=== PATIENT | female | born 1950 | race Hispanic/Latino ===

== ENCOUNTER 2018-01-04 14:16 | Emergency (ER) | payer OTHER, MEDICARE ==
[~2018-01-04 14:16] MED LIST: ALEN35 PO; CALC600T12 PO; LISI10TA7 PO
[2018-01-04 14:40] LABS: APPEARANCE,URINE Clear (CLEAR); BILIRUBIN,URINE Negative (NEGATIVE); COLOR,URINE Yellow (YELLOW); GLUCOSE, URINE (UA) Negative (NEGATIVE); KETONES,URINE Negative (NEGATIVE); LEUKOCYTE ESTERASE ,URINE Small (NEGATIVE); NITRATE,URINE Negative (NEGATIVE); OCCULT BLOOD,URINE Negative (NEGATIVE); PROTEIN,URINE Negative (NEGATIVE); UROBILINOGEN,URINE 0.2 mg/dL (0.2-1.0)
[2018-01-04 15:05] LABS: BACTERIA,URINE None Seen /HPF (None Seen); RBC,URINE None Seen /HPF (0-1); TRANSITIONAL EPI CELLS,URINE Few /HPF (None Seen); WBC,URINE 0-1 /HPF (0-1)
[2018-01-04] MEDS ORDERED: METHYLPREDNISOLONE SOD SUCC 125MG/2ML VIAL ONE (16:04)
[2018-01-04] MEDS ORDERED: ONDANSETRON ODT 4 MG TAB ONE ×2 (16:05→17:36)
[2018-01-04] MEDS ORDERED: HYDROMORPHONE 1 MG/1 ML AMP ONE (16:05)
[2018-01-04 16:06] LABS: BASOPHILS % (AUTO) 1.1 % (0.0-5.0); EOSINOPHILS % (AUTO) 7.5 % (0.0-8.0); HEMATOCRIT 41.3 % (36-48); LYMPHOCYTES % (AUTO) 41.1 % (21.0-51.0); MEAN CORPUSCULAR HEMOGLOBIN 29.1 pg (27.0-33.0); MEAN CORPUSCULAR HGB CONC 32.7 g/dL (32.0-36.0); MEAN CORPUSCULAR VOLUME 89.1 fL (79-99); MONOCYTES % (AUTO) 9.3 % (3.0-13.0); PLATELET COUNT (AUTO) 188 K/uL (130-400); RED BLOOD CELL COUNT(AUTO) 4.64 MIL/uL (4.00-5.50); RED CELL DISTRIBUTION WIDTH 13.6 % (11.0-15.5); WHITE BLOOD COUNT (AUTO) 4.9 K/uL (4.8-10.8)
[2018-01-04 16:19] LABS: CREATININE 0.8 mg/dL (0.5-1.5); POTASSIUM 4.2 mmol/L (3.5-5.1)
[2018-01-04 16:24] LABS: ALBUMIN 3.7 g/dL (3.5-5.0); BILIRUBIN,TOTAL 0.3 mg/dL (0.2-1.0); TOTAL PROTEIN, SERUM 7.7 g/dL (6.0-8.3)
== END 2018-01-04 17:52 | disposition home or self-care (01) ==
LOC: EDH 14:16
DX: M06.9 Rheumatoid arthritis, unspecified (principal); E11.9 Type 2 diabetes mellitus without complications; Z79.4 Long term (current) use of insulin; Z88.8 Allergy status to other drugs, medicaments and biological substances
CPT/HCPCS: 36415; 80053; 81001; 85025; 96372 ×2; 99284; J1170; J2930

== ENCOUNTER 2018-06-01 11:13 | Emergency (ER) | payer OTHER, MEDICARE ==
[2018-06-01] MEDS ORDERED: MECLIZINE HCL 25 MG TABLET ONE (11:42)
[2018-06-01] MEDS ORDERED: KETOROLAC TROMETHAMINE 15MG/ML ONE (11:42)
[2018-06-01] MEDS ORDERED: ORPHENADRINE CITRATE 30 MG/ML ML ONE (11:42)
[2018-06-01 11:47] LABS: BASOPHILS % (AUTO) 1.4 % (0.0-5.0); EOSINOPHILS % (AUTO) 6.2 % (0.0-8.0); HEMATOCRIT 39.7 % (36-48); LYMPHOCYTES % (AUTO) 36.1 % (21.0-51.0); MEAN CORPUSCULAR HEMOGLOBIN 29.5 pg (27.0-33.0); MEAN CORPUSCULAR HGB CONC 33.2 g/dL (32.0-36.0); MEAN CORPUSCULAR VOLUME 89.1 fL (79-99); MONOCYTES % (AUTO) 7.7 % (3.0-13.0); NEUTROPHILS % (AUTO) 48.6 % (40.0-77.0); NUCLEATED RED BLOOD CELLS 0.1 % (0.0-0.19); PLATELET COUNT (AUTO) 233 K/uL (130-400); RED BLOOD CELL COUNT(AUTO) 4.46 MIL/uL (4.00-5.50); RED CELL DISTRIBUTION WIDTH 13.9 % (11.0-15.5); WHITE BLOOD COUNT (AUTO) 4.9 K/uL (4.8-10.8)
[2018-06-01 12:24] LABS: CREATININE 0.8 mg/dL (0.5-1.5); POTASSIUM 4.1 mmol/L (3.5-5.1)
[2018-06-01 12:30] LABS: ALBUMIN 3.9 g/dL (3.5-5.0); BILIRUBIN,TOTAL 0.3 mg/dL (0.2-1.0); TOTAL PROTEIN, SERUM 7.5 g/dL (6.0-8.3)
== END 2018-06-01 15:21 | disposition home or self-care (01) ==
LOC: EDH 11:13
DX: S16.1XXA Strain of muscle, fascia and tendon at neck level, initial encounter (principal); H81.10 Benign paroxysmal vertigo, unspecified ear; M35.00 Sjogren syndrome, unspecified; J84.10 Pulmonary fibrosis, unspecified; M19.90 Unspecified osteoarthritis, unspecified site; E11.9 Type 2 diabetes mellitus without complications; Z88.8 Allergy status to other drugs, medicaments and biological substances; Z90.710 Acquired absence of both cervix and uterus; X58.XXXA Exposure to other specified factors, initial encounter; Y93.89 Activity, other specified; Y92.89 Other specified places as the place of occurrence of the external cause; Y99.8 Other external cause status
CPT/HCPCS: 36415; 72040; 80053; 85025; 96374; 96375; 99284; J1885; J2360

== ENCOUNTER 2018-07-20 13:16 | Emergency (ER) | payer OTHER, MEDICARE ==
[2018-07-20 14:19] LABS: BASOPHILS % (AUTO) 1.2 % (0.0-5.0); HEMATOCRIT 38.9 % (36-48); LYMPHOCYTES % (AUTO) 27.6 % (21.0-51.0); MEAN CORPUSCULAR HEMOGLOBIN 29.3 pg (27.0-33.0); MEAN CORPUSCULAR VOLUME 88.8 fL (79-99); MONOCYTES % (AUTO) 9.7 % (3.0-13.0); NEUTROPHILS % (AUTO) 57.5 % (40.0-77.0); NUCLEATED RED BLOOD CELLS 0.1 % (0.0-0.19); PLATELET COUNT (AUTO) 198 K/uL (130-400); RED BLOOD CELL COUNT(AUTO) 4.38 MIL/uL (4.00-5.50); RED CELL DISTRIBUTION WIDTH 13.8 % (11.0-15.5); WHITE BLOOD COUNT (AUTO) 4.3 K/uL (4.8-10.8)
[2018-07-20 14:30] LABS: CREATININE 0.7 mg/dL (0.5-1.5); POTASSIUM 3.7 mmol/L (3.5-5.1)
[2018-07-20 14:34] LABS: BILIRUBIN,TOTAL 0.2 mg/dL (0.2-1.0); TOTAL PROTEIN, SERUM 7.3 g/dL (6.0-8.3)
[2018-07-20 14:44] LABS: B-TYPE NATRIURETIC PEPTIDE 67 pg/mL (0-100)
== END 2018-07-20 15:05 | disposition home or self-care (01) ==
LOC: EDH 13:16
DX: J18.9 Pneumonia, unspecified organism (principal); E11.9 Type 2 diabetes mellitus without complications; M19.90 Unspecified osteoarthritis, unspecified site; Z88.8 Allergy status to other drugs, medicaments and biological substances; Z90.710 Acquired absence of both cervix and uterus
CPT/HCPCS: 36415; 71045; 80053; 83880; 84484; 85025; 93005

== ENCOUNTER 2018-09-14 02:05 | Inpatient (IN) | payer OTHER, MEDICARE | END 2018-09-19 14:30 | disposition home or self-care (01) | LOC: EDH 02:05 → EDHIP 04:17 → 3CH 17:18 | DX: I21.4 Non-ST elevation (NSTEMI) myocardial infarction (principal); J10.00 Influenza due to other identified influenza virus with unspecified type of pneumonia; I10 Essential (primary) hypertension; J84.10 Pulmonary fibrosis, unspecified; R09.02 Hypoxemia; J40 Bronchitis, not specified as acute or chronic ==

== ENCOUNTER 2021-10-09 10:00 | Emergency (ER) | payer OTHER, MEDICARE ==
[~2021-10-09] VITALS: Ht 154.9 cm; Wt 65.8 kg
[~2021-10-09 10:00] MED LIST changes: -ALEN35 PO; -CALC600T12 PO; +HYDR200T4 PO; -LISI10TA7 PO; +LOSA50TA64 PO; +MYCO500T5 PO; +PANT40TA54 PO
[2021-10-09] MEDS ORDERED: ACETAMINOPHEN 500 MG TABLET PO ONE (13:00)
[2021-10-09] MEDS ORDERED: DICL20GE TP (13:04)
[2021-10-09 13:44] VITALS: BP 144/77
== END 2021-10-09 13:45 | disposition home or self-care (01) ==
LOC: EDH 10:00
DX: M79.662 Pain in left lower leg (principal); M19.90 Unspecified osteoarthritis, unspecified site; Z98.890 Other specified postprocedural states; Z79.899 Other long term (current) drug therapy; Z88.1 Allergy status to other antibiotic agents
CPT/HCPCS: 93971

== ENCOUNTER → 2021-10-20 | Outpatient (CLI) | payer OTHER, MEDICARE ==
[~2021-10-20] MED LIST changes: +DICL20GE TP
== END | disposition home or self-care (01) ==
LOC: RAH 11:30
PROVIDERS: ATTEND Internal Medicine
DX: M25.462 Effusion, left knee (principal); M79.605 Pain in left leg
CPT/HCPCS: 93971

== ENCOUNTER 2021-10-29 04:26 | Emergency (ER) | payer OTHER, MEDICARE ==
[~2021-10-29] VITALS: Ht 154.9 cm; Wt 65.8 kg
[2021-10-29 04:36] VITALS: BP 168/62
[2021-10-29] MEDS ORDERED: OXYC-38 PO (04:55)
[2021-10-29] MEDS ORDERED: NAPR-1180 PO (04:55)
[2021-10-29] MEDS ORDERED: PRED50TA2 PO (04:55)
[2021-10-29] MEDS ORDERED: ONDANSETRON ODT 4MG TAB SL ONE (05:00)
[2021-10-29] MEDS ORDERED: SOLU-MEDROL 125MG VIAL IM ONE (05:00)
[2021-10-29] MEDS ORDERED: MORPHINE 4 MG SYG IM ONE (05:00)
== END 2021-10-29 05:19 | disposition home or self-care (01) ==
LOC: EDH 04:26
DX: M54.32 Sciatica, left side (principal); I10 Essential (primary) hypertension; Z88.8 Allergy status to other drugs, medicaments and biological substances; Z79.899 Other long term (current) drug therapy; Z98.890 Other specified postprocedural states
CPT/HCPCS: 99284; 96372 ×2; J2930; J2270

== ENCOUNTER → 2021-12-05 | Outpatient (CLI) | payer OTHER, MEDICARE ==
[~2021-12-05] MED LIST changes: +IOHEXOL-350 50ML VIAL IV ONE; +NAPR-1180 PO; +OXYC-38 PO; +PRED50TA2 PO
== END | disposition home or self-care (01) ==
LOC: RAH 09:36
PROVIDERS: ATTEND Internal Medicine
DX: R29.898 Other symptoms and signs involving the musculoskeletal system (principal)
CPT/HCPCS: 70470; Q9967

== ENCOUNTER 2022-04-19 20:07 | Emergency (ER) | payer OTHER, MEDICARE ==
[~2022-04-19] VITALS: Ht 157.5 cm; Wt 63.0 kg
[~2022-04-19 20:07] MED LIST changes: -IOHEXOL-350 50ML VIAL IV ONE
[2022-04-19 21:31] LABS: BASOPHILS % (AUTO) 0.4 % (0.0-5.0); EOSINOPHILS % (AUTO) 1.4 % (0.0-8.0); LYMPHOCYTES % (AUTO) 27.2 % (21.0-51.0); MEAN CORPUSCULAR HEMOGLOBIN 29.9 pg (27.0-33.0); MEAN CORPUSCULAR HGB CONC 32.4 g/dL (32.0-36.0); MEAN CORPUSCULAR VOLUME 92.1 fL (79-99); MONOCYTES % (AUTO) 13.4 % (3.0-13.0); NEUTROPHILS % (AUTO) 57.2 % (40.0-77.0); PLATELET COUNT (AUTO) 127 K/uL (130-400); RED BLOOD CELL COUNT(AUTO) 4.45 MIL/uL (4.00-5.50); RED CELL DISTRIBUTION WIDTH 13.2 % (11.0-15.5); WHITE BLOOD COUNT (AUTO) 5.2 K/uL (4.8-10.8)
[2022-04-19 21:44] LABS: ALBUMIN 3.3 g/dL (3.5-5.0); CREATININE 0.7 mg/dL (0.5-1.5); POTASSIUM 3.8 mmol/L (3.5-5.1); TOTAL PROTEIN, SERUM 6.9 g/dL (6.0-8.3)
[2022-04-19] MEDS ORDERED: BENZ200C53 PO (22:39)
[2022-04-19] MEDS ORDERED: IBUPROFEN 400 MG TABLET PO ONE (23:00)
[2022-04-19] MEDS ORDERED: OSEL75 PO (23:57)
[2022-04-20] VITALS: BP 108/52
== END 2022-04-20 00:08 | disposition home or self-care (01) ==
LOC: EDH 20:07
DX: R05.9 Cough, unspecified (principal); J84.10 Pulmonary fibrosis, unspecified; I10 Essential (primary) hypertension; Z90.710 Acquired absence of both cervix and uterus; Z90.89 Acquired absence of other organs; Z79.899 Other long term (current) drug therapy; Z88.8 Allergy status to other drugs, medicaments and biological substances; Z20.822 Contact with and (suspected) exposure to COVID-19
CPT/HCPCS: 99285; 80053; 85025; 87040 ×2; 87880; 87804 ×2; 83605; 36415; 87635; 71045; 93005; C9803

== ENCOUNTER 2022-11-29 12:30 | Observation (INO) | payer OTHER, MEDICARE ==
[~2022-11-29] VITALS: Ht 154.9 cm; Wt 61.9 kg
[~2022-11-29 12:30] MED LIST changes: +BENZ200C53 PO; -HYDR200T4 PO; +HYDR200T75 PO; +OSEL75 PO
[2022-11-29] MEDS ORDERED: MEROPENEM 1 GM in 0.9%NACL 100ML 100 ML IV SCH (14:30)
[2022-11-29] MEDS ORDERED: 0.9%NACL 1000ML 1,000 ML IV ONE ×2 (14:30→15:30)
[2022-11-29 16:24] LABS: BASOPHILS # (AUTO) 0.06 K/uL (0.00-0.20); BASOPHILS % (AUTO) 0.9 % (0.0-5.0); EOSINOPHILS # (AUTO) 0.07 K/uL (0.00-0.70); HEMATOCRIT 38.8 % (36-48); IMMATURE GRANULOCYTE ABSOLUTE 0.02 K/uL (0-1); LYMPHOCYTES # (AUTO) 1.4 K/uL (1.0-4.8); LYMPHOCYTES % (AUTO) 20.4 % (21.0-51.0); MEAN CORPUSCULAR HEMOGLOBIN 30.4 pg (27.0-33.0); MEAN CORPUSCULAR HGB CONC 32.7 g/dL (32.0-36.0); MEAN CORPUSCULAR VOLUME 92.8 fL (79-99); MONOCYTES # (AUTO) 0.5 K/uL (0.1-1.0); MONOCYTES % (AUTO) 6.6 % (3.0-13.0); NEUTROPHILS # (AUTO) 4.8 K/uL (1.8-7.7); NEUTROPHILS % (AUTO) 70.8 % (40.0-77.0); PLATELET COUNT (AUTO) 199 K/uL (130-400); RED BLOOD CELL COUNT(AUTO) 4.18 MIL/uL (4.00-5.50); RED CELL DISTRIBUTION WIDTH 13.2 % (11.0-15.5); WHITE BLOOD COUNT (AUTO) 6.8 K/uL (4.8-10.8)
[2022-11-29 16:34] LABS: INR 0.96 (0.85-1.15); PROTHROMBIN TIME 11.2 SEC (9.6-11.6)
[2022-11-29 16:35] LABS: PARTIAL THROMBOPLASTIN TIME 27.6 SEC (26.3-35.5)
[2022-11-29 16:46] LABS: BILIRUBIN,TOTAL 0.4 mg/dL (0.2-1.0); CREATININE 0.8 mg/dL (0.5-1.5); POTASSIUM 3.7 mmol/L (3.5-5.1); TOTAL PROTEIN, SERUM 7.8 g/dL (6.0-8.3)
[2022-11-29] MEDS ORDERED: HYDRALAZINE 20MG/ML VIAL IV PRN (17:30)
[2022-11-29] MEDS ORDERED: KETOROLAC 15MG/ML VIAL (15MG/ML) IV PRN (17:30)
[2022-11-29] MEDS ORDERED: MEROPENEM 500 MG VIAL IV SCH (17:30)
[2022-11-29 18:07] LABS: APPEARANCE,URINE CLEAR (CLEAR); BILIRUBIN,URINE NEGATIVE (NEGATIVE); COLOR,URINE COLORLESS (YELLOW); GLUCOSE, URINE (UA) NEGATIVE (NEGATIVE); KETONES,URINE NEGATIVE (NEGATIVE); LEUKOCYTE ESTERASE ,URINE NEGATIVE Leu/uL (NEGATIVE); MUCUS,URINE RARE LPF (None Seen); NITRATE,URINE NEGATIVE (NEGATIVE); OCCULT BLOOD,URINE NEGATIVE (NEGATIVE); PROTEIN,URINE NEGATIVE (NEGATIVE); RBC,URINE 0-1 /HPF (0-1); SQUAMOUS EPITHELIAL CELL,UR RARE /HPF (0-2); UROBILINOGEN,URINE 0.2 mg/dL (0.2-1.0); WBC,URINE 0-1 /HPF (0-1)
[2022-11-29 18:13] VITALS: PULSE 80; RESP 14; O2SAT 96
[2022-11-29 18:40] LABS: INFLUENZA TYPE A Negative For Type A (NEGATIVE); SARS-CoV-2, RNA, NAAT NEGATIVE SARS CoV-2 (NEGATIVE)
[2022-11-29 19:32] LABS: INFLUENZA TYPE B Positive For Type B (NEGATIVE)
[2022-11-29] MEDS: HEPARIN 5,000 UNIT VIAL SQ SCH (21:18)
[2022-11-29] MEDS: FAMOTIDINE 20MG VIAL IV SCH (21:18)
[2022-11-29 21:35] VITALS: BP 147/73; PULSE 74; RESP 20
[2022-11-29 22:00] VITALS: O2SAT 94
[2022-11-29] MEDS ORDERED: POTASSIUM CHLORIDE 10% ELIXIR 20 MEQ/15 ML UDCUP PO PRN (22:00)
[2022-11-29] MEDS ORDERED: GLUCAGON 1MG KIT 1 MG ML IM PRN (22:00)
[2022-11-29] MEDS ORDERED: DEXTROSE 50%-WATER 50 ML DISP.SYRIN IV PRN (22:00)
[2022-11-29] MEDS ORDERED: POTASSIUM CHLORIDE 20MEQ/100ML 100 ML IV PRN ×2 (22:00)
[2022-11-29] MEDS ORDERED: ONDANSETRON 4MG INJ IVP PRN (22:00)
[2022-11-29] MEDS ORDERED: GUAIFENESIN-CODEINE 5 ML SYRUP PO PRN (22:00)
[2022-11-29] MEDS ORDERED: MAGNESIUM 2GM PREMIX 50ML 50 ML IV PRN (22:00)
[2022-11-29] MEDS ORDERED: ACETAMINOPHEN 650 MG SUPPOSITORY RC PRN (22:00)
[2022-11-29] MEDS ORDERED: POLYETHYLENE GLYCOL 3350 17 GM POWD.PACK PO PRN (22:00)
[2022-11-29] MEDS: ACETAMINOPHEN 325 MG TAB PO PRN (22:54)
[2022-11-30] VITALS (12 sets, daily range): BP systolic 118–140; BP diastolic 68–80; PULSE 59–76; RESP 16–20; O2SAT 97–99
[2022-11-30] MEDS ORDERED: BENZ200C53 PO (01:19)
[2022-11-30] MEDS ORDERED: MONT-39 PO (01:19)
[2022-11-30] MEDS ORDERED: LOSA25TA41 PO (01:19)
[2022-11-30] MEDS ORDERED: OMEP40CA21 PO (01:19)
[2022-11-30] MEDS ORDERED: AZIT250T PO (01:19)
[2022-11-30] MEDS ORDERED: DOXY100T21 PO (01:19)
[2022-11-30] MEDS ORDERED: DILT120C78 PO (01:19)
[2022-11-30] MEDS ORDERED: HYDR200T75 PO (01:19)
[2022-11-30] MEDS ORDERED: ALEN70TA80 PO (01:25)
[2022-11-30] MEDS ORDERED: CETI10CA5 PO (01:25)
[2022-11-30] MEDS ORDERED: CEFEPIME HCL 1 GM VIAL ONE (02:25)
[2022-11-30 04:26] LABS: BASOPHILS # (AUTO) 0.07 K/uL (0.00-0.20); BASOPHILS % (AUTO) 1.3 % (0.0-5.0); EOSINOPHILS # (AUTO) 0.28 K/uL (0.00-0.70); EOSINOPHILS % (AUTO) 5.4 % (0.0-8.0); HEMATOCRIT 35.6 % (36-48); IMMATURE GRANULOCYTE ABSOLUTE 0.01 K/uL (0-1); LYMPHOCYTES % (AUTO) 38.7 % (21.0-51.0); MEAN CORPUSCULAR HEMOGLOBIN 30.3 pg (27.0-33.0); MEAN CORPUSCULAR HGB CONC 32.3 g/dL (32.0-36.0); MEAN CORPUSCULAR VOLUME 93.9 fL (79-99); MONOCYTES # (AUTO) 0.5 K/uL (0.1-1.0); NEUTROPHILS # (AUTO) 2.4 K/uL (1.8-7.7); NEUTROPHILS % (AUTO) 45.4 % (40.0-77.0); PLATELET COUNT (AUTO) 187 K/uL (130-400); RED BLOOD CELL COUNT(AUTO) 3.79 MIL/uL (4.00-5.50); RED CELL DISTRIBUTION WIDTH 13.4 % (11.0-15.5); WHITE BLOOD COUNT (AUTO) 5.2 K/uL (4.8-10.8)
[2022-11-30 04:34] LABS: HEMOGLOBIN A1C 5.9 % (4.0-6.0)
[2022-11-30 04:48] LABS: BILIRUBIN,TOTAL 0.4 mg/dL (0.2-1.0); CREATININE 0.6 mg/dL (0.5-1.5); MAGNESIUM 1.7 mg/dL (1.80-2.40); POTASSIUM 3.8 mmol/L (3.5-5.1); THYROID STIMULATING HORMONE 1.97 uIU/mL (0.36-3.74); TOTAL PROTEIN, SERUM 6.4 g/dL (6.0-8.3)
[2022-11-30 04:52] LABS: B-TYPE NATRIURETIC PEPTIDE 173 pg/mL (0-100)
[2022-11-30] MEDS: ALBUTEROL 0.083% 2.5 MG/3 ML INH IH PRN ×3 (06:35→23:55)
[2022-11-30] MEDS ORDERED: MEROPENEM 1 GM in 0.9%NACL 100ML 100 ML IV SCH (07:00)
[2022-11-30] MEDS ORDERED: COMPOUND IV REFRIGERATED 1 EACH IVSOLN MISC PRN (08:00)
[2022-11-30] MEDS ORDERED: COMPOUND IV MISC 1 EACH IVSOLN MISC PRN (08:00)
[2022-11-30] MEDS: ACETAMINOPHEN 325 MG TAB PO PRN ×2 (08:35→21:48)
[2022-11-30] MEDS: FAMOTIDINE 20MG VIAL IV SCH ×2 (08:35→21:41)
[2022-11-30] MEDS: HEPARIN 5,000 UNIT VIAL SQ SCH ×3 (08:37→21:42)
[2022-11-30] MEDS: OSELTAMIVIR PHOSPHATE 75 MG CAP PO SCH (08:48)
[2022-11-30] MEDS: KCL 20 MEQ ERTAB PO PRN ×2 (14:24→17:02)
[2022-12-01] VITALS (8 sets, daily range): BP systolic 122–135; BP diastolic 68–75; PULSE 64–79; RESP 16–20; O2SAT 94–99
[2022-12-01 04:22] LABS: HEMATOCRIT 37.5 % (36-48); MEAN CORPUSCULAR HEMOGLOBIN 30.4 pg (27.0-33.0); MEAN CORPUSCULAR VOLUME 94.9 fL (79-99); RED BLOOD CELL COUNT(AUTO) 3.95 MIL/uL (4.00-5.50); RED CELL DISTRIBUTION WIDTH 13.2 % (11.0-15.5); WHITE BLOOD COUNT (AUTO) 5.5 K/uL (4.8-10.8)
[2022-12-01 05:07] LABS: CREATININE 0.8 mg/dL (0.5-1.5); MAGNESIUM 2.2 mg/dL (1.80-2.40); POTASSIUM 4.4 mmol/L (3.5-5.1)
[2022-12-01] MEDS: ALBUTEROL 0.083% 2.5 MG/3 ML INH IH PRN ×2 (06:36→12:01)
[2022-12-01] MEDS ORDERED: HYDROXYCHLOROQUINE SULFATE 200 MG TAB PO SCH (09:00)
[2022-12-01] MEDS ORDERED: BENZONATATE 100 MG CAPSULE PO SCH (09:00)
[2022-12-01] MEDS ORDERED: CETIRIZINE HCL 5 MG TABLET PO SCH (09:00)
[2022-12-01] MEDS ORDERED: NON-FORMULARY MEDICATION 1 EACH (Diltiazem HCl (Diltiazem ER) 120 MG) PO SCH (09:00)
[2022-12-01] MEDS ORDERED: MONTELUKAST SODIUM 10 MG TAB PO SCH (09:00)
[2022-12-01] MEDS ORDERED: NON-FORMULARY MEDICATION 1 EACH (Cetirizine HCl (Zyrtec) 10 MG) PO SCH (09:00)
[2022-12-01] MEDS ORDERED: DILTIAZEM 120MG SR CAP PO SCH (09:00)
[2022-12-01] MEDS ORDERED: NON-FORMULARY MEDICATION 1 EACH (Benzonatate 200 MG) PO SCH (09:00)
[2022-12-01] MEDS ORDERED: LOSARTAN 25 MG TABLET PO SCH (09:00)
[2022-12-01] MEDS: FAMOTIDINE 20MG VIAL IV SCH (09:55)
[2022-12-01] MEDS: OSELTAMIVIR PHOSPHATE 75 MG CAP PO SCH (09:55)
[2022-12-01] MEDS: HEPARIN 5,000 UNIT VIAL SQ SCH ×2 (09:59→14:15)
[2022-12-02] MEDS ORDERED: ALENDRONATE SODIUM 35 MG TAB PO SCH (06:30)
[2022-12-07] MEDS ORDERED: NON-FORMULARY MEDICATION 1 EACH (Alendronate Sodium 70 MG) PO SCH (09:00)
== END 2022-12-01 18:57 | disposition home or self-care (01) ==
LOC: EDH 12:30 → DIRECT 12:31 → 4CH 22:06
PROVIDERS: ADMIT Internal Medicine Critical Care Medicine; ATTEND Internal Medicine Critical Care Medicine
DX: J96.91 Respiratory failure, unspecified with hypoxia (principal); Z20.822 Contact with and (suspected) exposure to COVID-19; J18.9 Pneumonia, unspecified organism; J10.00 Influenza due to other identified influenza virus with unspecified type of pneumonia; M19.90 Unspecified osteoarthritis, unspecified site; I25.10 Atherosclerotic heart disease of native coronary artery without angina pectoris; E78.5 Hyperlipidemia, unspecified; I25.2 Old myocardial infarction; K21.9 Gastro-esophageal reflux disease without esophagitis; N30.00 Acute cystitis without hematuria; J84.10 Pulmonary fibrosis, unspecified; M35.00 Sjogren syndrome, unspecified; M54.30 Sciatica, unspecified side; I10 Essential (primary) hypertension; Z90.13 Acquired absence of bilateral breasts and nipples; Z88.6 Allergy status to analgesic agent; Z90.710 Acquired absence of both cervix and uterus; Z85.3 Personal history of malignant neoplasm of breast; Z87.440 Personal history of urinary (tract) infections
CPT/HCPCS: 96372 ×3; 96365; 96366 ×2; 96375 ×2; 99285; 82550 ×2; 84484 ×2; 80053 ×2; 85025 ×2; 85610; 85730; 87040 ×2; 87088; 87804 ×2; 83605 ×3; 81001; 36415 ×3; 87635; 71045; 71250; 94664; 84145 ×2; 94640 ×5; 94667; 96376 ×2; 83036; 84443; 83735 ×2; 83880 ×2; 82140; 93306; 93356; 97161; 97116; 94668 ×3; 80048; 85027; G0378 ×46; J3490 ×4; J7030; J1644 ×6; J2185 ×3; J3475; J0692

== ENCOUNTER 2022-12-17 05:52 | Emergency (ER) | payer OTHER, MEDICARE ==
[~2022-12-17] VITALS: Ht 152.4 cm; Wt 67.1 kg
[~2022-12-17 05:52] MED LIST changes: +ALEN70TA80 PO; +CETI10CA5 PO; -DICL20GE TP; +DILT120C78 PO; +LOSA25TA41 PO; -LOSA50TA64 PO; +MONT-39 PO; -MYCO500T5 PO; -NAPR-1180 PO; +OMEP40CA21 PO; -OSEL75 PO; -OXYC-38 PO; -PANT40TA54 PO; -PRED50TA2 PO
[2022-12-17 07:06] LABS: BASOPHILS # (AUTO) 0.04 K/uL (0.00-0.20); BASOPHILS % (AUTO) 0.6 % (0.0-5.0); EOSINOPHILS % (AUTO) 2.9 % (0.0-8.0); HEMATOCRIT 39.2 % (36-48); IMMATURE GRANULOCYTE ABSOLUTE 0.01 K/uL (0-1); LYMPHOCYTES # (AUTO) 2.1 K/uL (1.0-4.8); LYMPHOCYTES % (AUTO) 30.8 % (21.0-51.0); MEAN CORPUSCULAR HEMOGLOBIN 30.1 pg (27.0-33.0); MEAN CORPUSCULAR HGB CONC 32.9 g/dL (32.0-36.0); MEAN CORPUSCULAR VOLUME 91.4 fL (79-99); MONOCYTES # (AUTO) 0.6 K/uL (0.1-1.0); MONOCYTES % (AUTO) 8.8 % (3.0-13.0); NEUTROPHILS # (AUTO) 3.9 K/uL (1.8-7.7); NEUTROPHILS % (AUTO) 56.8 % (40.0-77.0); PLATELET COUNT (AUTO) 214 K/uL (130-400); RED BLOOD CELL COUNT(AUTO) 4.29 MIL/uL (4.00-5.50); RED CELL DISTRIBUTION WIDTH 12.9 % (11.0-15.5); WHITE BLOOD COUNT (AUTO) 6.9 K/uL (4.8-10.8)
[2022-12-17 07:23] LABS: ALBUMIN 3.6 g/dL (3.5-5.0); BILIRUBIN,TOTAL 0.5 mg/dL (0.2-1.0); CREATININE 0.8 mg/dL (0.5-1.5); POTASSIUM 3.5 mmol/L (3.5-5.1); TOTAL PROTEIN, SERUM 7.6 g/dL (6.0-8.3)
[2022-12-17] MEDS ORDERED: MORPHINE 4 MG SYG IVP ONE (09:00)
[2022-12-17] MEDS ORDERED: FENTANYL 25 MCG/HR PATCH TD SCH (09:30)
[2022-12-17 10:19] VITALS: BP 161/87; PULSE 78; RESP 18; O2SAT 96
== END 2022-12-17 11:08 | disposition home or self-care (01) ==
LOC: EDH 05:52
DX: S42.211A Unspecified displaced fracture of surgical neck of right humerus, initial encounter for closed fracture (principal); S00.31XA Abrasion of nose, initial encounter; I10 Essential (primary) hypertension; M19.90 Unspecified osteoarthritis, unspecified site; Z88.8 Allergy status to other drugs, medicaments and biological substances; Z90.710 Acquired absence of both cervix and uterus; W18.30XA Fall on same level, unspecified, initial encounter; Y93.89 Activity, other specified; Y92.89 Other specified places as the place of occurrence of the external cause; Y99.8 Other external cause status
CPT/HCPCS: 99284; 96374; 80053; 85025; 36415; 73090; 73060; J2270

== ENCOUNTER → 2023-09-05 | Outpatient (CLI) | payer OTHER, MEDICARE | END | disposition home or self-care (01) | LOC: RAH 10:30 | PROVIDERS: ATTEND Internal Medicine | DX: K80.20 Calculus of gallbladder without cholecystitis without obstruction (principal); R10.821 Right upper quadrant rebound abdominal tenderness | CPT/HCPCS: 76700 ==

== ENCOUNTER 2023-12-20 18:34 | Inpatient (IN) | payer OTHER, MEDICARE ==
[~2023-12-20] VITALS: Ht 154.9 cm; Wt 56.4 kg
[2023-12-20 19:10] LABS: RAPID GROUP A STREP negative (NEGATIVE)
[2023-12-20 19:12] LABS: SARS-CoV-2, RNA, NAAT NEGATIVE SARS CoV-2 (NEGATIVE)
[2023-12-20 19:20] LABS: INFLUENZA TYPE A Negative For Type A (NEGATIVE); INFLUENZA TYPE B Negative For Type B (NEGATIVE)
[2023-12-20] MEDS: IpraTROPium/alBUTERol SULFATE 3 ML SOLUTION IH ONE (20:58)
[2023-12-20 20:59] VITALS: PULSE 70; RESP 22
[2023-12-20 21:03] LABS: BASOPHILS # (AUTO) 0.08 K/uL (0.00-0.20); BASOPHILS % (AUTO) 1.1 % (0.0-5.0); EOSINOPHILS # (AUTO) 0.47 K/uL (0.00-0.70); EOSINOPHILS % (AUTO) 6.7 % (0.0-8.0); HEMATOCRIT 43.3 % (36-48); IMMATURE GRANULOCYTE ABSOLUTE 0.01 K/uL (0-1); LYMPHOCYTES # (AUTO) 2.4 K/uL (1.0-4.8); LYMPHOCYTES % (AUTO) 34.1 % (21.0-51.0); MEAN CORPUSCULAR HEMOGLOBIN 29.6 pg (27.0-33.0); MEAN CORPUSCULAR HGB CONC 32.3 g/dL (32.0-36.0); MEAN CORPUSCULAR VOLUME 91.5 fL (79-99); MONOCYTES # (AUTO) 0.4 K/uL (0.1-1.0); MONOCYTES % (AUTO) 5.9 % (3.0-13.0); NEUTROPHILS # (AUTO) 3.6 K/uL (1.8-7.7); NEUTROPHILS % (AUTO) 52.1 % (40.0-77.0); PLATELET COUNT (AUTO) 199 K/uL (130-400); RED BLOOD CELL COUNT(AUTO) 4.73 MIL/uL (4.00-5.50); RED CELL DISTRIBUTION WIDTH 12.6 % (11.0-15.5)
[2023-12-20 21:11] LABS: INR 1.01 (0.85-1.15); PROTHROMBIN TIME 10.9 SEC (9.6-11.6)
[2023-12-20 21:12] LABS: PARTIAL THROMBOPLASTIN TIME 26.6 SEC (26.3-35.5)
[2023-12-20] MEDS: Solu-medROL 125MG VIAL IVP ONE (21:15)
[2023-12-20 21:32] LABS: CREATININE 0.8 mg/dL (0.5-1.0); POTASSIUM 3.8 mmol/L (3.5-5.1)
[2023-12-20] MEDS ORDERED: acetaMINOPHEN 650 MG SUPPOSITORY RC PRN (23:30)
[2023-12-21] VITALS (7 sets, daily range): BP systolic 112–128; BP diastolic 61–73; PULSE 64–112; RESP 16–22; TEMP 97.5–99.3; O2SAT 94–96
[2023-12-21] MEDS: IpraTROPium 0.5 MG/2.5 ML INH IH SCH (00:01)
[2023-12-21] MEDS: ALBUTEROL 0.083% 2.5 MG/3 ML INH IH SCH (00:01)
[2023-12-21 00:07] LABS: ABG OXYGEN SATURATION 95.5 % (94.0-98.0); ABG PCO2 29 mmHg (32-45); ABG PH 7.418 (7.350-7.450); PO2, ARTERIAL BG 75.1 mmHg (83.0-108.0); VENT MODE, BG RA,21 (ROOM AIR)
[2023-12-21] MEDS: acetaMINOPHEN 325 MG TAB PO PRN (00:13)
[2023-12-21] MEDS ORDERED: hydrALAZine 20MG/ML VIAL IV PRN (01:30)
[2023-12-21] MEDS: AZITHROMYCIN 500MG+NS 250ML 250 ML IVPB SCH (03:22)
[2023-12-21] MEDS: cefTRIAXone 1G VIAL IVPB SCH (03:22)
[2023-12-21] MEDS: BUDESONIDE 0.5 MG/2 ML INH IH SCH (07:03)
[2023-12-21 08:00] LABS: BASOPHILS # (AUTO) 0.01 K/uL (0.00-0.20); BASOPHILS % (AUTO) 0.2 % (0.0-5.0); HEMATOCRIT 42.2 % (36-48); IMMATURE GRANULOCYTE ABSOLUTE 0.01 K/uL (0-1); LYMPHOCYTES # (AUTO) 0.8 K/uL (1.0-4.8); LYMPHOCYTES % (AUTO) 18.9 % (21.0-51.0); MEAN CORPUSCULAR HEMOGLOBIN 30.1 pg (27.0-33.0); MONOCYTES % (AUTO) 0.9 % (3.0-13.0); NEUTROPHILS # (AUTO) 3.5 K/uL (1.8-7.7); NEUTROPHILS % (AUTO) 79.8 % (40.0-77.0); PLATELET COUNT (AUTO) 180 K/uL (130-400); RED BLOOD CELL COUNT(AUTO) 4.49 MIL/uL (4.00-5.50); RED CELL DISTRIBUTION WIDTH 12.5 % (11.0-15.5); WHITE BLOOD COUNT (AUTO) 4.4 K/uL (4.8-10.8)
[2023-12-21 08:33] LABS: HEMOGLOBIN A1C 5.3 % (4.0-6.0)
[2023-12-21 08:43] LABS: PHOSPHORUS 3.5 mg/dL (2.5-4.9); POTASSIUM 3.5 mmol/L (3.5-5.1); THYROID STIMULATING HORMONE 0.97 uIU/mL (0.36-3.74)
[2023-12-21] MEDS: ENOXAPARIN SODIUM 40 MG/0.4 ML SYRINGE SQ SCH (10:21)
[2023-12-21] MEDS: FAMOTIDINE 20MG TAB PO SCH (10:21)
[2023-12-21] MEDS ORDERED: IpraTROPium 0.5 MG/2.5 ML INH IH SCH (11:00)
[2023-12-21] MEDS: SODIUM CHLORIDE 3% FOR INHALATION 4 ML/AMP VIAL.NEB IH ONE ×2 (11:13→18:37)
[2023-12-21] MEDS: INSULIN humuLIN R 100 UNIT/ML 3ML SQ SCH (11:30)
[2023-12-21] MEDS: Solu-medROL 40MG VIAL IVP SCH (11:36)
[2023-12-21] MEDS ORDERED: HYDR200T75 PO (16:04)
[2023-12-21] MEDS ORDERED: DILT120T PO (16:04)
[2023-12-21] MEDS ORDERED: ROSU5TAB43 PO (16:04)
[2023-12-21] MEDS ORDERED: AEC81 PO (16:04)
[2023-12-21] MEDS ORDERED: PILO5POW2 MC (16:04)
[2023-12-21] MEDS ORDERED: NINT100C PO (16:04)
[2023-12-21] MEDS ORDERED: MYCO500T5 PO (16:04)
[2023-12-21] MEDS ORDERED: levoFLOXacin 250 MG/D5W 50ML 50 ML IVPB SCH (16:30)
[2023-12-21] MEDS: ceFEPime HCL 1 GM VIAL IVPB SCH (16:41)
[2023-12-21] MEDS: levoFLOXacin 250 MG/D5W 50ML 50 ML IVPB SCH (18:39)
[2023-12-21] MEDS: guaiFENesin-DM 200/20MG 10ML PO PRN (18:39)
[2023-12-22] VITALS (13 sets, daily range): BP systolic 106–134; BP diastolic 57–72; PULSE 84–96; RESP 17–20; TEMP 97.7–98.4; O2SAT 94–98
[2023-12-22 05:21] LABS: BASOPHILS # (AUTO) 0.01 K/uL (0.00-0.20); BASOPHILS % (AUTO) 0.1 % (0.0-5.0); HEMATOCRIT 38.3 % (36-48); IMMATURE GRANULOCYTE ABSOLUTE 0.06 K/uL (0-1); LYMPHOCYTES % (AUTO) 8.2 % (21.0-51.0); MEAN CORPUSCULAR HEMOGLOBIN 29.8 pg (27.0-33.0); MEAN CORPUSCULAR HGB CONC 32.1 g/dL (32.0-36.0); MEAN CORPUSCULAR VOLUME 92.7 fL (79-99); MONOCYTES # (AUTO) 0.3 K/uL (0.1-1.0); MONOCYTES % (AUTO) 2.1 % (3.0-13.0); NEUTROPHILS # (AUTO) 11.3 K/uL (1.8-7.7); NEUTROPHILS % (AUTO) 89.1 % (40.0-77.0); PLATELET COUNT (AUTO) 189 K/uL (130-400); RED BLOOD CELL COUNT(AUTO) 4.13 MIL/uL (4.00-5.50); RED CELL DISTRIBUTION WIDTH 12.9 % (11.0-15.5); WHITE BLOOD COUNT (AUTO) 12.7 K/uL (4.8-10.8)
[2023-12-22 06:12] LABS: ALBUMIN 3.4 g/dL (3.5-5.0); BILIRUBIN,TOTAL 0.2 mg/dL (0.2-1.0); CREATININE 0.9 mg/dL (0.5-1.0); POTASSIUM 3.8 mmol/L (3.5-5.1); TOTAL PROTEIN, SERUM 7.3 g/dL (6.0-8.3)
[2023-12-22 06:21] LABS: B-TYPE NATRIURETIC PEPTIDE 229 pg/mL (0-100)
[2023-12-22] MEDS: doCUSate SODIUM 100 MG CAP PO PRN (08:09)
[2023-12-22] MEDS: hydroXYCHLOroquine SULFate 200 MG TAB PO SCH (08:10)
[2023-12-22] MEDS: monteLUKAST sodIUM 10 MG TAB PO SCH (08:12)
[2023-12-22] MEDS: LoSARTan 25 MG TABLET PO SCH (08:12)
[2023-12-22] MEDS: dilTIAZem 120MG SR CAP PO SCH (08:12)
[2023-12-22] MEDS: ceTIRIzine HCL 5 MG TABLET PO SCH (08:13)
[2023-12-22] MEDS: MELATONIN 5 MG TABLET PO SCH (20:03)
[2023-12-23] VITALS (12 sets, daily range): BP systolic 120–147; BP diastolic 57–72; PULSE 65–91; RESP 16–20; TEMP 97.8–98.9; O2SAT 94–97
[2023-12-23] MEDS: Solu-medROL 40MG VIAL IVP SCH (09:01)
[2023-12-24] VITALS (14 sets, daily range): BP systolic 111–139; BP diastolic 52–77; PULSE 17–90; RESP 18–19; TEMP 97.4–98.5; O2SAT 94–100
[2023-12-24] MEDS: LACTULOSE 20 GM/30 ML UDCUP PO SCH (20:34)
[2023-12-25] VITALS (10 sets, daily range): BP systolic 116–138; BP diastolic 63–72; PULSE 62–86; RESP 17–19; TEMP 97.8–98.2; O2SAT 94–98
[2023-12-25 04:50] LABS: BASOPHILS # (AUTO) 0.01 K/uL (0.00-0.20); BASOPHILS % (AUTO) 0.1 % (0.0-5.0); HEMATOCRIT 37.9 % (36-48); IMMATURE GRANULOCYTE ABSOLUTE 0.04 K/uL (0-1); LYMPHOCYTES # (AUTO) 1.7 K/uL (1.0-4.8); LYMPHOCYTES % (AUTO) 19.6 % (21.0-51.0); MEAN CORPUSCULAR HEMOGLOBIN 29.6 pg (27.0-33.0); MEAN CORPUSCULAR HGB CONC 31.9 g/dL (32.0-36.0); MEAN CORPUSCULAR VOLUME 92.7 fL (79-99); MONOCYTES # (AUTO) 0.8 K/uL (0.1-1.0); MONOCYTES % (AUTO) 8.9 % (3.0-13.0); NEUTROPHILS % (AUTO) 70.9 % (40.0-77.0); PLATELET COUNT (AUTO) 181 K/uL (130-400); RED BLOOD CELL COUNT(AUTO) 4.09 MIL/uL (4.00-5.50); RED CELL DISTRIBUTION WIDTH 12.9 % (11.0-15.5); WHITE BLOOD COUNT (AUTO) 8.5 K/uL (4.8-10.8)
[2023-12-25 05:10] LABS: CREATININE 0.7 mg/dL (0.5-1.0); POTASSIUM 3.6 mmol/L (3.5-5.1)
[2023-12-25] MEDS: predniSONE 20 MG TABLET PO SCH (09:09)
[2023-12-25] MEDS ORDERED: PoTASSium chloRIDE 20MEQ/100ML 100 ML IV PRN (16:30)
[2023-12-25] MEDS ORDERED: PoTASSium chl 10% ELIXIR 20MEQ 20 MEQ/15 ML UDCUP PO PRN (16:30)
[2023-12-25] MEDS ORDERED: PoTASSium chloRIDE 20MEQ ER 20 MEQ ERTAB PO PRN (16:30)
[2023-12-25 16:46] LABS: INR 1.05 (0.85-1.15); PROTHROMBIN TIME 11.3 SEC (9.6-11.6)
[2023-12-25 16:47] LABS: PARTIAL THROMBOPLASTIN TIME 26.4 SEC (26.3-35.5)
[2023-12-26] VITALS: BP 146/80; PULSE 70; RESP 17; TEMP 97.6
[2023-12-26 04:00] VITALS: BP 142/73; PULSE 68; RESP 18; TEMP 98
[2023-12-26 06:38] VITALS: PULSE 56; RESP 18
[2023-12-26 08:00] VITALS: BP 152/69; PULSE 74; RESP 16; TEMP 97.6; O2SAT 95
[2023-12-26 11:00] VITALS: BP 141/73; PULSE 64; RESP 18; TEMP 97.9
[2023-12-26 11:18] VITALS: PULSE 62; RESP 18
== END 2023-12-26 15:55 | DRG 193 ==
LOC: EDH 18:34 → UNDOADMIN 22:30 → EDHIP 22:30 → OBSVTOIN 22:41 → 4CH 12-21 10:45
PROVIDERS: ADMIT Internal Medicine Pulmonary Disease; ATTEND Internal Medicine Pulmonary Disease
PROC: 05HY33Z Insertion of Infusion Device into Upper Vein, Percutaneous Approach (ICD-10-PCS; principal; 2023-12-25)
DX: J18.9 Pneumonia, unspecified organism (principal); J96.21 Acute and chronic respiratory failure with hypoxia; J84.10 Pulmonary fibrosis, unspecified; N18.2 Chronic kidney disease, stage 2 (mild); I12.9 Hypertensive chronic kidney disease with stage 1 through stage 4 chronic kidney disease, or unspecified chronic kidney disease; E78.5 Hyperlipidemia, unspecified; K21.9 Gastro-esophageal reflux disease without esophagitis; M35.00 Sjogren syndrome, unspecified; I25.10 Atherosclerotic heart disease of native coronary artery without angina pectoris; K44.9 Diaphragmatic hernia without obstruction or gangrene; K80.20 Calculus of gallbladder without cholecystitis without obstruction; Z90.13 Acquired absence of bilateral breasts and nipples; Z99.81 Dependence on supplemental oxygen; I25.2 Old myocardial infarction; Z90.710 Acquired absence of both cervix and uterus
CPT/HCPCS: 36415; 36600; 71045; 71250; 80048; 80053; 82803; 82948; 83036; 83605; 83735; 83880; 84100; 84145; 84443; 84484; 85025; 85378; 85610; 85730; 87071; 87205; 87635; 87804; 87880; 93306; 93356; 94640; 94664; G0378; J0456; J0692; J0696; J1650; J1956; J2919; C1750

== ENCOUNTER → 2024-04-16 | Outpatient (CLI) | payer OTHER, MEDICARE ==
[~2024-04-16] MED LIST changes: +AEC81 PO; +DILT120T PO; +MYCO500T5 PO; +NINT100C PO; +PILO5POW2 MC; +ROSU5TAB51 PO
--- NOTE | 2024-04-17 09:09 | HMCIMG ---
Bilateral diagnostic mammogram and left breast ultrasound HISTORY: MASTODYNIA COMPARISON: 07/12/2020 TECHNIQUE: Bilateral digital diagnostic mammogram was performed. Left breast ultrasound images also were obtained. FINDINGS: Parenchymal density: There are scattered areas of fibroglandular density. There is no evidence of a dominant mass, or suspicious microcalcification. There is no evidence of nipple retraction or skin thickening. There is normal appearing breast parenchyma. There are no focal masses. There are no cysts. There are some normal-appearing left axillary lymph nodes. IMPRESSION: 1. Stable bilateral mammogram 2. Negative left breast ultrasound. The patient was entered into a reminder system with a target due date for their next mammogram. BI-RADS CATEGORY 1: NEGATIVE Recommend monthly self breast exam as well as annual clinical examination. A negative x-ray should not delay biopsy if a dominant or clinically suspicious mass is present, since 8-10% of cancers are not identified by mammography. Dense breasts particularly, may obscure an underlying neoplasm. Some of these may be detected clinically and therefore, clinical examination is an essential part of breast evaluation.
== END | disposition home or self-care (01) ==
LOC: RAH 03-26 13:10
PROVIDERS: ATTEND Internal Medicine
DX: R92.30 Dense breasts, unspecified (principal); N64.4 Mastodynia
CPT/HCPCS: 76641; 77066